=== PATIENT | female | born 1950 | race Caucasian/White ===

== ENCOUNTER → 2017-06-09 | Outpatient (CLI) | payer OTHER | LOC: FIMAGING 10:03 | PROVIDERS: ATTEND Internal Medicine | DX: R60.0 Localized edema (principal); E27.9 Disorder of adrenal gland, unspecified ==

== ENCOUNTER → 2017-08-07 | Outpatient (CLI) | payer OTHER | LOC: BHFA 11:30 | PROVIDERS: ATTEND Internal Medicine Cardiovascular Disease | DX: R63.5 Abnormal weight gain (principal) ==

== ENCOUNTER 2018-01-04 17:17 | Emergency (ER) | payer OTHER ==
[2018-01-04 18:08] LABS: PLATELET COUNT 290 10^3/uL (150-400)
[2018-01-04] MEDS ORDERED: NS 1,000 ML IV ONE (18:16)
[2018-01-04] MEDS ORDERED: KETOROLAC 30 MG/1 ML SDV IVP ONE (18:16)
[2018-01-04] MEDS ORDERED: ONDANSETRON 4 MG/2 ML VIAL IVP ONE (18:16)
--- NOTE | 2018-01-04 18:24 | EDPHY ---
H & P Time Seen by Provider: 01/04/18 18:06 HPI/ROS: HPI Abdominal and flank pain. 67-year-old female by private vehicle. This patient complains of consistent and worsening right flank pain with radiation to the right lower quadrant of her abdomen x2 days. 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 The patient has a history of a superior mesenteric artery thrombosis. She is currently not on anticoagulation. She also has a history of chronic back pain and abdominal pain and takes Dilaudid for this. After brief evaluation by physician assistant Khanna she was sent to the emergency department for further evaluation. The patient denies associated nausea and vomiting. Denies any mid back pain. No bowel or bladder incontinence. No loss of sensation or weakness in her lower extremities. No gross hematuria. ROS: Constitutional: No fever, no chills. No weakness. Eyes: No discharge. No changes in vision. ENT: No sore throat. No nasal congestion or rhinorrhea. Respiratory: No cough. No shortness of breath. Cardiac: No chest pain, no palpitations. Gastrointestinal: As above, no vomiting, no diarrhea. Genitourinary: No hematuria. No dysuria or increased frequency with urination. Musculoskeletal: As above. No neck pain. No myalgias or arthralgias. Skin: No rashes. Neurological: No headache. No focal weakness or altered sensation. Past medical history: As above. Appendectomy, hypertension, hypothyroidism, spinal fusions, hysterectomy, cholecystectomy. Chronic back pain and abdominal pain. Social history: Here by herself. Nonsmoker. Denies alcohol. Physical Exam: General Appearance: Alert, no distress. This patient is responding to questions appropriately and in full sentences. This patient appears well- hydrated and well-nourished. Eyes: Pupils equal and round no pallor or injection. No lid edema, erythema or injection. Respiratory: There are no retractions, lungs are clear to auscultation with good air movement bilaterally. Cardiovascular: Regular rate and rhythm. No murmur. Gastrointestinal: Abdomen is soft with vague right lower quadrant tenderness on palpation, no masses, bowel sounds normal. No focal tenderness at McBurney' s point. No Salmeron sign. Neurological: Motor sensory function is grossly intact. Cranial nerves are normal. Gait is normal. Skin: Warm and dry, no rashes. Musculoskeletal: Neck is supple and nontender. Right-sided CVA tenderness on palpation. No left-sided CVA tenderness on palpation. Extremities are symmetrical. All joints range without pain or impingement. Psychiatric: No agitation. No depression. Database: EKG: Imaging: CT scan of abdomen and pelvis with IV contrast: No evidence of hydronephrosis. The superior mesenteric artery is patent. Possible mild thickening of the bladder wall. Otherwise this is a negative study. Results were discussed with staff radiologist Dr. Donta Rose. Procedures: Emergency department course: Triage vital signs reviewed. She is moderately hypertensive. Vital signs otherwise normal. IV was placed. She was started on IV normal saline with 1 L to be given over the next 1-2 hours. She has no contraindications to NSAIDs. IV Toradol will be given after verification of a normal creatinine. She will be given 4 mg of IV Zofran. Her presentation is consistent with ureterolithiasis. However given her history of superior mesenteric artery thrombosis a contrast enhanced study will be obtained of her abdomen and pelvis. 7:00 p.m., patient was complaining of pain and was given 1 mg of IV hydromorphone. 7:50 p.m., patient re-evaluated. Resting comfortably at this time. Watching TV. Repeat abdominal exam she is soft, nontender nondistended. Results of her CT scan discussed with her. Results of blood work and urinalysis reviewed. It is possible that she had a kidney stone that she just recently passed. She has remained afebrile. Her urinalysis does not indicate infection. She feels comfortable going home and I feel she is safe for discharge. I do not believe she requires antibiotics at this time. Plan will be to have her follow up with her primary care physician either tomorrow or Monday for re-evaluation. She feels comfortable with this. Return to emergency department precautions were thoroughly reviewed with her. All of her questions were answered. She was discharged from the emergency department in good condition. Differential Diagnosis: The differential diagnosis on this patient includes but is not limited to ureterolithiasis. Appendicitis, SMA thrombosis, mesenteric ischemia, volvulus unlikely. This represents a partial list of diagnoses considered. These considerations are based on history, physical exam, past history, reassessment and diagnostic testing. Smoking Status: Current every day smoker Constitutional: Initial Vital Signs Temperature (C) 36.6 C 01/04/18 17:25 Heart Rate 65 01/04/18 17:25 Respiratory Rate 18 01/04/18 17:25 Blood Pressure 159/108 H 01/04/18 17:25 O2 Sat (%) 97 01/04/18 17:25 O2 Delivery Mode Room Air Allergies/Adverse Reactions: codeine Allergy (Verified 01/04/18 17:24) hydrocodone Allergy (Verified 01/04/18 17:24) morphine Allergy (Verified 01/04/18 17:24) soy Allergy (Verified 01/04/18 17:24) CYCLINES Allergy (Uncoded 04/12/16 14:37) SULFAS Allergy (Uncoded 04/12/16 14:37) Home Medications: Medication Instructions Recorded Calcium Carbonate [Oyster Shell 1,000 mg PO DAILY 04/12/16 Calcium 500 mg (*)] Cholecalciferol Vit D3 [Vitamin D3 1,000 units PO DAILY 04/12/16 (*)] Estradiol [Estradiol 1 MG (*)] 1 mg PO DAILY 04/12/16 HYDROmorphone HCL [Dilaudid 2 mg 2 - 4 mg PO Q4 PRN MDD 30MG 04/12/16 (*)] Herbals/Supplements -Info Only 1 ea PO DAILY 04/12/16 Levothyroxine [Synthroid 100 mcg 100 mcg PO DAILY06 04/12/16 (*)] Losartan Potassium [Cozaar] 100 mg PO DAILY 04/12/16 Psyllium Husk [Metamucil] 660 gm PO DAILY PRN 04/12/16 Zolpidem Tartrate [Ambien 5MG (*)] 5 mg PO HS PRN 04/12/16 amLODIPine BESYLATE [Norvasc 10 mg 10 mg PO DAILY 04/12/16 (*)] Aspirin [Aspirin 81mg (*)] 81 mg PO DAILY #0 tab 04/14/16 Promethazine HCl [Phenergan 25mg 25 mg PO Q8H PRN #10 tab 04/15/16 (*)] Medical Decision Making - Diagnostics Imaging Results: Imaging Impressions Abdomen CT 01/04/18 18:16 Impression: 1. Diffuse bladder wall thickening, although the bladder is decompressed. This could be related to underdistention, inflammation/infection, or other etiology, with no definite bladder mass identified. 2. Nonobstructing left nephrolithiasis. 3. Slight improvement in biliary dilatation since 2016. 4. Stable pancreatic neck cyst. 5. Additional findings as above. Findings discussed with Emery Hatfield MD 01/04/2018 at 19:23. - Data Points Laboratory Results: Laboratory Results 01/04/18 17:43 01/04/18 17:43 01/04/18 01/04/18 01/04/18 18:07 17:43 17:43 WBC 5.83 10^3/uL 10^3/uL (3.80-9.50) RBC 5.26 10^6/uL 10^6/uL (4.18-5.33) Hgb 15.1 g/dL g/dL (12.6-16.3) Hct 45.5 % % (38.0-47.0) MCV 86.5 fL fL (81.5-99.8) MCH 28.7 pg pg (27.9-34.1) MCHC 33.2 g/dL g/dL (32.4-36.7) RDW 14.7 % % (11.5-15.2) Plt Count 290 10^3/uL 10^3/uL (150-400) MPV 11.1 fL fL (8.7-11.7) Neut % (Auto) 61.3 % % (39.3-74.2) Lymph % (Auto) 29.7 % % (15.0-45.0) [place] % (Auto) 5.8 % % (4.5-13.0) Eos % (Auto) 2.2 % % (0.6-7.6) Baso % (Auto) 0.7 % % (0.3-1.7) Nucleat RBC Rel Count 0.0 % % (0.0-0.2) Absolute Neuts (auto) 3.57 10^3/uL 10^3/uL (1.70-6.50) Absolute Lymphs (auto) 1.73 10^3/uL 10^3/uL (1.00-3.00) Absolute Monos (auto) 0.34 10^3/uL 10^3/uL (0.30-0.80) Absolute Eos (auto) 0.13 10^3/uL 10^3/uL (0.03-0.40) Absolute Basos (auto) 0.04 10^3/uL 10^3/uL (0.02-0.10) Absolute Nucleated RBC 0.00 10^3/uL 10^3/uL (0-0.01) Immature Gran % 0.3 % % (0.0-1.1) Immature Gran # 0.02 10^3/uL 10^3/uL (0.00-0.10) Sodium 139 mEq/L mEq/L (135-145) Potassium 4.3 mEq/L mEq/L (3.3-5.0) Chloride 106 mEq/L mEq/L (97-110) Carbon Dioxide 26 mEq/l mEq/l (22-31) Anion Gap 7 mEq/L L mEq/L (8-16) BUN 16 mg/dL mg/dL (7-23) Creatinine 0.8 mg/dL mg/dL (0.6-1.0) Estimated GFR > 60 Glucose 88 mg/dL mg/dL (70-100) Calcium 9.8 mg/dL mg/dL (8.5-10.4) Urine Color ARABELLA Urine Appearance HAZY Urine pH 5.0 (5.0-7.5) Ur Specific [place] 1.024 (1.002-1.030) Urine Protein 1+ H (NEGATIVE) Urine Ketones TRACE H (NEGATIVE) Urine Blood 2+ H (NEGATIVE) Urine Nitrate NEGATIVE (NEGATIVE) Urine Bilirubin NEGATIVE (NEGATIVE) Urine Urobilinogen 2.0 EU H EU (0.2-1.0) Ur Leukocyte Esterase NEGATIVE (NEGATIVE) Urine RBC 50-182 /hpf H /hpf (0-3) Urine WBC 1-3 /hpf /hpf (0-3) Ur Epithelial Cells TRACE /lpf /lpf (NONE-1+) Calcium Oxalate [place] PRESENT /hpf /hpf (NONE-1+) Urine Mucus 1+ /lpf /lpf (NONE-1+) Ur Culture Indicated? NOT INDICATED (NI) Urine Glucose NEGATIVE (NEGATIVE) Medications Given: Discontinued Medications Hydromorphone HCl (Dilaudid) 1 mg IVP EDNOW ONE Stop: 01/04/18 19:16 Last Admin: 01/04/18 19:21 Dose: 1 mg Sodium Chloride (Ns) 1,000 mls @ 0 mls/hr IV EDNOW ONE; Wide Open PRN Reason: Protocol Stop: 01/04/18 18:17 Last Admin: 01/04/18 18:30 Dose: 1,000 mls Ketorolac Tromethamine (Toradol) 30 mg IVP EDNOW ONE Stop: 01/04/18 18:17 Last Admin: 01/04/18 18:29 Dose: 30 mg Ondansetron HCl (Zofran) 4 mg IVP EDNOW ONE Stop: 01/04/18 18:17 Last Admin: 01/04/18 18:29 Dose: 4 mg Departure - Departure Disposition: Home, Routine, Self-Care Clinical Impression: Abdominal pain, Hematuria Condition: Good Instructions: Acute Abdominal Pain (ED), Hematuria (ED) Additional Instructions: Read and follow provided instructions. Follow-up with your primary care physician on Monday or next Monday at the latest for re-evaluation. Continue taking her medication as prescribed. Return to the emergency department for worsening abdominal pain, fever, vomiting , blood in your stool or other serious concerns. Referrals: Hue Adkins MD [Primary Care Provider] - As per Instructions
[2018-01-04] MEDS ORDERED: IOPAMIDOL (ISOVUE-300) 100 ML BTL ONE (18:43)
[2018-01-04] MEDS ORDERED: HYDROmorphONE/DILAUDID 2 MG/ML INJ IVP ONE (19:15)
[2018-01-04 19:55] VITALS: BP 136/82
== END 2018-01-04 20:16 | disposition home or self-care (01) ==
DX: R31.9 Hematuria, unspecified (principal); I10 Essential (primary) hypertension; E86.9 Volume depletion, unspecified; F17.200 Nicotine dependence, unspecified, uncomplicated; Z90.49 Acquired absence of other specified parts of digestive tract; Z90.710 Acquired absence of both cervix and uterus; Z90.89 Acquired absence of other organs; Z91.82 Personal history of military deployment
CPT/HCPCS: 74177; 96361; 96374; 96375; 99285; J1170; J1885; J2405; Q9967